=== PATIENT | male | born 1965 | race Two or more races ===

== ENCOUNTER 2022-09-12 20:35 | Inpatient (IN) | payer MEDICARE, OTHER ==
[~2022-09-12] VITALS: Ht 182.9 cm; Wt 171.7 kg
[~2022-09-12 20:35] MED LIST: ASPI-1169 PO; CARV12.52 PO; COLC0.6C3 PO; FEBU80TA PO; HYDR-4354 PO; HYDR4TAB4 PO; ISOS10TA8 PO; METO50TA7 PO; NICO1PAT28 TD; Nitroglycerin SL; PANT40TA49 PO; SIMV-46 PO; TAMS-12 PO
[2022-09-13 02:52] VITALS: BP 96/51
--- NOTE | 2022-09-13 02:52 | NUR ---
ADMISSION NOTES PATIENT DIRECT ADMIT FROM [facility], CAME IN UNIT AT AROUND 0132 AM, ACCOMPANIED BY 2 EMT VIA STRETCHER. NO S/S OF APPARENT DISTRESS IN ROOM AIR. DENIES PAIN NOR CHEST PAIN AT THIS TIME. PATIENT WISHES TO BE FULL CODE. NEW ID BAND ON PATIENT. BELONGINGS CHECKED AND SIGNED FOR. SKIN INTACT. PATIENT IS A/OX4. ORIENTED IN THE UNIT AND THE USE OF CALL LIGHT. DENIES SMOKING NOR ALCOHOL ABUSE. REFUSED FLU VACCINE, BUT PER PATIENT HE IS VACCINATED WITH COVID X2 MODERNA. IV ACCESS ON RIGHT HAND #2G, INTACT AND PATENT. READING SR WITH 88 BPM WITH PVC'S. V/S STABLE AND DOCUMENTED. SAFETY IN PLACE. AWAITING DOCTOR'S ORDERS. WILL FOLLOW THROUGH.
--- NOTE | 2022-09-13 03:02 | NUR ---
noc rn note Patient came in with Heprarin drip. verified with [facility], RN, Yeyo. Per RN, they started the Heparin drip per [facility] protocol at 09/12/22 @2050 and stopped infusion @0100 before patient was transferred. Messaged hospitalist Bianca regarding this matter. Per Doctor, to resume it. Made Charge aware. PTT and PT/INR ordered STAT.
--- NOTE | 2022-09-13 03:08 | NUR ---
noc rn note patient brought in home medications in a med minute clerk for basic traffic, unable to verify medications and milligrams. Patient has one specific medication for his HIV maintenance "BIKTARVY" but doesn't know the mg. Made charge nurse, Ani aware and per charge have someone bring in patient's medications tomorrow morning. Discussed with patient and patient said he'll have someone bring them in tomorrow. Patient is a/ox4, and aware not to take any of the medications while in the hospital. Patient acknowledged.
[2022-09-13] MEDS ORDERED: BICT1TAB PO ×2 (03:46→07:54)
[2022-09-13] MEDS ORDERED: ACAR50TA4 PO (03:54)
[2022-09-13] MEDS ORDERED: METO25TA6 PO (03:54)
[2022-09-13] MEDS ORDERED: FURO-145 PO ×2 (03:54→07:54)
[2022-09-13 04:16] VITALS: BP 123/80
[2022-09-13 04:17] VITALS: BP 123/80
[2022-09-13] MEDS ORDERED: HEPARIN INFUSION/D5W 500 ML IV PRN (04:30)
--- NOTE | 2022-09-13 04:50 | NUR ---
noc rn note Called [facility], Pharmacist verified order of BOLUS 6,000 units for continuing Heparin <ACS> protocol. ApTT 25.7.
[2022-09-13] MEDS ORDERED: HEPARIN SODIUM, PORCINE 5000 UNITS/1 ML VIAL IV ONE (05:00)
[2022-09-13] MEDS ORDERED: HEPARIN SODIUM,PORCINE/PF 50 UNIT/5 ML DISP.SYRIN IV ONE (05:00)
--- NOTE | 2022-09-13 05:24 | NUR ---
noc rn note patient re-started on Heparin drip as ordered. per [facility] protocol from [facility]. BOLUS of 6,000 units given per protocol aPTT <35. Rate increased by +300 units/hr hence Infusion rate of 1500 units/hr (initial 1,200units/hr). Heprin drip going right now @30mls/hr. no bleeding noted. will monitor.
--- NOTE | 2022-09-13 05:38 | NUR ---
next aPTT and PT/INR ordered @1120 am
[2022-09-13] MEDS ORDERED: ACETAMINOPHEN 325 MG TABLET PO PRN (06:30)
[2022-09-13] MEDS ORDERED: ONDANSETRON HCL/PF 4 MG/2 ML VIAL IVP PRN (06:30)
--- NOTE | 2022-09-13 06:40 | NUR ---
EKG DONE. RESULT GIVEN TO FAISAL.
--- NOTE | 2022-09-13 07:28 | NUR ---
noc rn closing note needs attended. Report given to FAISAL Pierre for continuity of patient care. Heparin drip on going on right hand @30mls/hr= 1500units/hr, NO BLOOD DRAW sign in place.
--- NOTE | 2022-09-13 07:30 | NUR ---
MEDICAL WRITER OPENING NOTES RECEIVED PATIENT ON BED AWAKE AND ABLE TO MAKE NEEDS KNOWN , A/O X 4 , ON ROOM AIR WITH NO SOB OR DISTRESS NOTED , NO C/O OF PAIN AND DISCOMFORT , CONTINENT AND WITH BRP , AMBULATORY , IV ACCESS OF R HAND #20 G WITH ON GOING HEPARIN DRIP ON 30 ML /HOUR , NO S/S OF BLEEDING NOTED , ON NPO AT THIS TIME AND , SAFETY MEASURES PROVIDED AND CALL WITHIN REACH AND WILL CONTINUE TO MONITOR FOR NAY CHANGES .
[2022-09-13] MEDS ORDERED: COLC0.6T67 PO (07:54)
[2022-09-13] MEDS ORDERED: ASPI-1420 PO (07:54)
[2022-09-13] MEDS ORDERED: SACU1TAB7 PO (07:54)
[2022-09-13] MEDS ORDERED: TAMS-12 PO (07:54)
[2022-09-13] MEDS ORDERED: HYDR-4354 PO (07:54)
[2022-09-13] MEDS ORDERED: METO25TA4 PO (07:54)
[2022-09-13] MEDS ORDERED: ALLO300T2 PO (07:54)
[2022-09-13] MEDS ORDERED: PRED5TAB PO (07:55)
[2022-09-13 08:00] VITALS: BP 137/71
[2022-09-13 12:00] VITALS: BP 122/74
[2022-09-13] MEDS ORDERED: COLCHICINE 0.6 MG TABLET PO PRN (12:30)
[2022-09-13] MEDS ORDERED: HYDROCODONE/APAP 10/325MG TABLET PO PRN (12:30)
[2022-09-13] MEDS ORDERED: predniSONE 5 MG TABLET PO PRN (12:30)
[2022-09-13] MEDS ORDERED: ISOS30TA86 PO (12:31)
--- NOTE | 2022-09-13 13:00 | NUR ---
MOLD YARD WORKER NOTES PATIENT ON BED AWAKE AND ABLE TO MAKE NEEDS KNOWN , A/O X 4 , ON ROOM AIR WITH NO SOB OR DISTRESS NOTED , NO C/O OF PAIN AND DISCOMFORT , CONTINENT AND WITH BRP , AMBULATORY , IV ACCESS OF R HAND #20 G WITH ON GOING HEPARIN DRIP ON 30 ML /HOUR , NO S/S OF BLEEDING NOTED , SEEN BY DR BREWER AND [facility] ORDER FOR DISCHARGE TO HOME , DISCHARGE INSTRUCTION PROVIDED FOLLOW UP WITH PCP, MEDICATION COMPLIANCE AND SAFETY AND TO CALL 911 IN CASE OF EMERGENCY , PATIENT IS ALERT AND ORIENTED AND UNDERSTOOD INSTRUCTIONS PROVIDED , ALL PERSONAL BELONGINGS WAS TAKEN AND PATIENT CLAIM HIS PILL BOX IS MISSING , CALLED PHARMACY THEY SAID NOTHING WAS LEFT AND CHECK SAFE BUT NOTHING WAS FOUND , PATIENT LEFT PHONE NUMBER IN CASE WE'LL FIND IT TO CALL HIM , PATIENT LEFT AMBULATORY AND NO SOB OR ANY C/O OF CHEST PAIN NOTED , LEFT IN A STABLE CONDITION . IV ACCESS WAS REMOVED AND ID BAND REMOVED . LEFT AROUND 1300 .
[2022-09-13] MEDS ORDERED: SACUBITRIL/VALSARTAN 1 EACH TABLET PO SCH (17:00)
[2022-09-14] MEDS ORDERED: TAMSULOSIN 0.4 MG CAP.SR.24H PO SCH (09:00)
[2022-09-14] MEDS ORDERED: ALLOPURINOL 100 MG TABLET PO SCH (09:00)
[2022-09-14] MEDS ORDERED: ASPIRIN EC 81 MG TABLET.DR PO SCH (09:00)
[2022-09-14] MEDS ORDERED: METOPROLOL SUCCINATE 25 MG TAB.SR.24H PO SCH (09:00)
[2022-09-14] MEDS ORDERED: FUROSEMIDE 20 MG TABLET PO SCH (09:00)
== END 2022-09-13 17:50 | disposition home or self-care (01) | DRG 311 ==
LOC: TELE 09-13 01:22
PROVIDERS: ADMIT Internal Medicine; ATTEND Internal Medicine
DX: I20.0 Unstable angina (principal); Z68.43 Body mass index [BMI] 50.0-59.9, adult; Z86.73 Personal history of transient ischemic attack (TIA), and cerebral infarction without residual deficits; E66.01 Morbid (severe) obesity due to excess calories; M10.9 Gout, unspecified; I50.9 Heart failure, unspecified; I11.0 Hypertensive heart disease with heart failure; Z86.79 Personal history of other diseases of the circulatory system
CPT/HCPCS: 36415; 85610-TC; 85730-TC; 87081-TC; G0378; J1644